=== PATIENT | female | born 1990 | race Caucasian/White ===

== ENCOUNTER → 2016-08-06 | Outpatient (CLI) | payer OTHER, SELFPAY ==
[~2016-08-06] MED LIST: MOTRIN-DPS800 MG PO; PRENATAL VIT1 TAB PO; TYLENOL #3 DPS1 TAB PO
== END | disposition home or self-care (01) ==
LOC: RAD.S 07-30 10:30
DX: R10.2 Pelvic and perineal pain (principal); N83.01 Follicular cyst of right ovary